=== PATIENT | male | born 2000 | race American Indian/Alaskan Native ===

== ENCOUNTER 2020-02-27 21:53 | Emergency (ER) | payer SELFPAY ==
[2020-02-27] MEDS ORDERED: DIPHtheria,PERTUSSIS(ACELL),TETANUS VACCINE/PF 0.5 ML VIAL IM ONE (22:02)
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
[2020-02-27 22:28] LABS: BUN/Creatinine Ratio 7; Blood Urea Nitrogen 9 mg/dL (9-20); Calcium 9.8 mg/dL (8.4-10.2); Hemolysis Index 116
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
[2020-02-27 22:51] LABS: Hematocrit 47.2 % (35.5-45.6); Hemoglobin 15.3 gm/dl (11.8-15.2); Mean Corpuscular HGB Conc 32 % (32-34); Mean Corpuscular Volume 81 fl (84-94); Platelet Count 229 K/mm3 (140-440); Red Blood Count 5.83 M/mm3 (3.65-5.03); Red Cell Distribution Width 15.2 % (13.2-15.2)
[2020-02-28 00:33] VITALS: BP 138/64
[2020-02-28] MEDS ORDERED: BACITRACIN/POLYMYXIN B OINT 28.35 GM TP ONE (00:38)
[2020-02-28] MEDS ORDERED: NEOMY 3.5 MG/BACIT 400 UNITS/POLY B 5000 UNITS/GM OINT PACKET TP ONE (00:45)
== END 2020-02-28 01:02 | disposition home or self-care (01) ==
LOC: ED 21:53
DX: S40.912A Unspecified superficial injury of left shoulder, initial encounter (principal); Z79.899 Other long term (current) drug therapy; W22.8XXA Striking against or struck by other objects, initial encounter; Y93.89 Activity, other specified; Y92.89 Other specified places as the place of occurrence of the external cause; Y99.8 Other external cause status
CPT/HCPCS: 36415; 71045; 73060; 73090; 80048; 85025; 90471; 90715; 99284; A6250